=== PATIENT | female | born 1990 | race Caucasian/White ===

== ENCOUNTER 2021-02-15 10:34 | Outpatient (CLI) | payer OTHER, SELFPAY | END 2021-02-15 10:35 | disposition home or self-care (01) | LOC: ANHAUDIO 10:35 | PROVIDERS: PCP Family Medicine; Visit Provider Family Medicine | DX: Z01.10 Encounter for examination of ears and hearing without abnormal findings (principal) | CPT/HCPCS: 99199 ==

== ENCOUNTER 2021-03-05 10:33 | Outpatient (CLI) | payer OTHER, SELFPAY | END 2021-03-05 10:34 | disposition home or self-care (01) | LOC: ANHAUDIO 10:35 | PROVIDERS: PCP Family Medicine; Visit Provider Family Medicine | DX: F52.9 Unspecified sexual dysfunction not due to a substance or known physiological condition (principal); F22 Delusional disorders; G47.00 Insomnia, unspecified | CPT/HCPCS: 99199 ==

== ENCOUNTER 2021-03-22 10:59 | Outpatient (CLI) | payer OTHER, SELFPAY | END 2021-03-22 11:00 | disposition home or self-care (01) | LOC: ANHAUDIO 11:00 | PROVIDERS: PCP Family Medicine; Visit Provider Family Medicine | DX: Z01.10 Encounter for examination of ears and hearing without abnormal findings (principal) | CPT/HCPCS: 92556; 92567; 92587 ==

== ENCOUNTER 2022-03-29 08:36 | Outpatient (CLI) | payer OTHER, SELFPAY | END 2022-03-29 08:37 | disposition home or self-care (01) | LOC: ANHAUDIO 08:37 | PROVIDERS: PCP Family Medicine; Visit Provider Family Medicine | DX: G47.00 Insomnia, unspecified (principal) | CPT/HCPCS: 92552; 92556; 92567 ==

== ENCOUNTER 2023-04-24 11:02 | Outpatient (CLI) | payer OTHER, SELFPAY | END 2023-04-24 11:03 | disposition home or self-care (01) | LOC: ANHAUDIO 11:02 | PROVIDERS: PCP Family Medicine; Visit Provider Family Medicine | DX: Z01.10 Encounter for examination of ears and hearing without abnormal findings (principal) | CPT/HCPCS: 92552; 92556; 92567 ==

== ENCOUNTER 2024-04-30 07:43 | Outpatient (CLI) | payer OTHER, SELFPAY | END 2024-04-30 07:44 | disposition home or self-care (01) | LOC: ANHAUDIO 07:43 | PROVIDERS: PCP Family Medicine; Visit Provider Family Medicine | DX: Z01.10 Encounter for examination of ears and hearing without abnormal findings (principal) | CPT/HCPCS: 92552; 92556; 92567 ==

== ENCOUNTER 2025-05-03 10:37 | Outpatient (CLI) | payer OTHER, SELFPAY ==
--- OUTSIDE RECORDS SUMMARY | 2025-05-03 12:07 | XMS_ITS ---
Author Organization Unknown Address [address] [place] [phone] Phone Care Team Providers Care Shirt Closer Name Role Phone WILL Carlton Attending Unavailable SHANTAL Barnett Primary Unavailable Immunization Immunization Date Status Additional Notes Code Code System DTP 01/19/1992 Completed 01 CVX DTP 04/18/1993 Completed 01 CVX DTP 11/14/1993 Completed 01 CVX OPV, trivalent 01/19/1992 Completed 02 CVX OPV, trivalent 04/18/1993 Completed 02 CVX OPV, trivalent 11/14/1993 Completed 02 CVX OPV, trivalent 01/21/1996 Completed 02 CVX MMR 04/18/1993 Completed 03 CVX MMR 01/21/1996 Completed 03 CVX Hep B, adolescent or pediatric 01/14/2001 Completed 08 CVX IPV 01/11/1992 Completed 10 CVX Hib, unspecified formulation 02/16/1992 Completed 17 CVX Hib, unspecified formulation 04/18/1993 Completed 17 CVX Hib, unspecified formulation 11/14/1993 Completed 17 CVX DTaP 01/11/1992 Completed 20 CVX DTaP 01/21/1996 Completed 20 CVX DTP-Hib 08/26/1994 Completed 22 CVX meningococcal MPSV4 12/31/2005 Completed 32 CVX Hib (HbOC) 01/11/1992 Completed 47 CVX HPV, quadrivalent 02/02/2008 Completed 62 C VX HPV, quadrivalent 06/05/2010 Completed 62 C VX Influenza, live, trivalent, intranasal, PF 06/05/2010 Completed 111 CVX Tdap 12/31/2005 Completed 115 CVX Tdap 02/20/2021 Completed 115 CVX HPV, unspecified formulation 08/06/2011 Completed 137 CVX Influenza, split virus, trivalent, preservative 02/18/2024 Completed 141 CVX Influenza, split virus, quadrivalent, preservative 02/21/2021 Completed 158 C VX Influenza, split virus, quadrivalent, preservative 02/13/2022 Completed 158 C VX Influenza, split virus, quadrivalent, preservative 02/12/2023 Completed 158 C VX COVID-19, mRNA, LNP-S, PF, 3 0 mcg/0.3 mL dose 01/05/2021 Completed 208 CVX COVID-19, mRNA, LNP-S, PF, 3 0 mcg/0.3 mL dose 02/01/2021 Completed 208 CVX COVID-19, mRNA, LNP-S, PF, 3 0 mcg/0.3 mL dose 07/24/2021 Completed 208 CVX COVID-19, mRNA, LNP-S, bivalent, PF, 30 mcg/0.3 mL dose 09/11/2022 Completed 300 CVX COVID-19, mRNA, LNP-S, PF, 5 0 mcg/0.5 mL 02/24/2024 Completed 312 CVX Results ANKLE 2V LEFT - Completed: 0 01/05/2024 17:05 LOINC: EXAM DESCRIPTION: ANKLE 2V LEFT REASON FOR STUDY: fall/ ankle pain / swelling lateral aspect Duration: today TECHNIQUE: 2 radiographic view(s) of the left ankle . COMPARISON: None available FINDINGS: There is no acute fracture or acute traumatic malalignment. Joint spaces are normal. No focal bone lesions. Small plantar calcaneal spur. No ankle effusion. There is mild imaged lower extremity soft tissue swelling. IMPRESSION: No acute osseous abnormality. THIS IS AN ELECTRONICALLY VERIFIED FINAL REPORT 01/05/2024 5:15 PM - Electronically signed by Anahi De La Fuente M.D. AT: AT Report ID: [id number] Reading Location: [id number] Social History Type Status Start Date End Date Code Code Syst em Smoking History Unknown if ever smoked [id number] Sex Female Assessment You had the following problems:OTHER ALF (CURRENT) DRUG THERAPY Hospital Discharge Instructions Should you have any questions prior to discharge, please contact a member of your healthcare team. If you have left the hospital and have any questions, please contact your primary care physician. Reason For Referral No Data Found Problems Problem Start Date Resolved Date Status Code Code System OTHER ALF (CURRENT) DR [facility] active [id number] SNOMED-CT Plan of Treatment US Kidney & Bladder (66295) 12/06/2024 Encounters Encounter Diagnosis Start Date Code Code Sys tem Strain of other specified mu scles and tendons at ankle and foot level, left foot, initial encounter 01/05/2024 SNOMED-CT Personal Care Team Section Performer Name Performer Role Active Date Inactive LES Neil PCP - Primary care physician 2021-12-08 Imaging Narrative Notes
--- OUTSIDE RECORDS SUMMARY | 2025-05-03 12:07 | XMS_ITS ---
Author Organization Unknown Address [address] [place] [phone] Phone Care Team Providers Care Systematic Theology Professor Name Role Phone ISAÍAS REAGAN PMHNP Attending Unavailable SHANTAL Barnett Primary Unavailable Immunization [...] mcg/0.5 mL 02/24/2024 Completed 312 CVX Results COMPREHENSIVE METABOLIC PANE L - Collect Date/Time: 03/30/2024 07:55 [facility] ID: [id number] [address] [place], [place], [id number] LOINC: 26806-1 Test Value Unit Reference Range Code Code System Flag FASTING NO BUN 15 mg/dL L=7 H=20 3094-0 LOINC CREATININE 0.70 mg/dL L=0.52 H=1.04 2160-0 LOINC GLUCOSE 87 mg/dL L=74 H=106 2345-7 LOINC SODIUM 141 mmol/L L=132 H=144 2951-2 LOINC POTASSIUM 3.6 mmol/L L=3.5 H=5.1 2823-3 LOINC CHLORIDE 96 mmol/L L=98 H=107 2075-0 LOINC L CO2 31.0 mmol/L L=22.0 H=30.0 2028-9 LOINC H ANION GAP 18 L=10 H=20 60992-6 LOINC OSMOLALITY 292 mOs/kG L=280 H=296 12391-8 LOINC BUN/CREAT 21.4 3097-3 LOINC CALCIUM 9.2 mg/dL L=8.3 H=10.5 56643-8 LOINC AST 22 U/L L=15 H=46 1920-8 LOINC ALT 16 U/L L=9 H=72 1742-6 LOINC ALKALINE PHOS 70 U/L L=38 H=126 6768-6 LOINC TOTAL BILI 0.5 mg/dL L=0.2 H=1.3 1975-2 LOINC ALBUMIN 4.1 G/dL L=3.5 H=5.0 1751-7 LOINC TOTAL PROTEIN 7.6 g/L L=6.3 H=8.2 2885-2 LOINC A/G RATIO 1.2 70751-9 LOINC AGE 33 35105-6 LOINC eGFR NON-AFR 103 ml/min eGFR AFR AMER 125 ml/min VALPROIC ACID - Collect Date /Time: 03/30/2024 07:55 [facility] ID: [id number] [place], [id number] LOINC: 4086-5 Test Value Unit Reference Range Code Code System Flag VALPROIC ACID 52 ug/mL L=50 H=100 4086-5 LOINC LAST DOSE? UNKNOWN CBC W/ DIFF - Collect Date/T piper: 03/30/2024 07:55 [facility] ID: [id number] [place], [place], [phone] LOINC: 34070-6 Test Value Unit Reference Range Code Code System Flag WBC 5.6 10^3uL L=4.8 H=10.8 RBC 4.97 10^6uL L=4.20 H=5.40 HEMOGLOBIN 13.9 g/dL L=12.0 H=16.0 718-7 LOINC HEMATOCRIT 43.2 VOL% L=37.0 H=47.0 4544-3 LOINC MCV 86.9 fL L=81.0 H=99.0 MCH 28.0 pg L=27.0 H=32.0 MCHC 32.2 g/dL L=32.0 H=36.0 PLATELETS 177 10^3uL L=100 H=400 40913-8 LOINC RDW 12.7 % L=11.7 H=15.5 %GRAN 54.8 % L=40.0 H=70.0 07995-1 LOINC %LYMPH 36.6 % L=20.0 H=45.0 736-9 LOINC %MONO 5.9 % L=2.0 H=10.0 16500-4 LOINC %EOS 1.6 % L=0.0 H=6.0 713-8 LOINC %BASO 0.9 % L=0.0 H=3.0 706-2 LOINC #NEUT 3.1 10^3uL L=1.9 H=7.6 21784-3 LOINC #LYMPH 2.0 10^3uL L=0.9 H=4.9 42272-2 LOINC #MONO 0.3 10^3uL L=0.1 H=0.9 18030-9 LOINC #EOS 0.1 10^3uL L=0.0 H=0.6 712-0 LOINC #BASO 0.05 10^3uL L=0.00 H=0.10 74500-6 LOINC #IM GRANS 0.0 10^3uL L=0.0 H=7.0 23699-3 LOINC %IM GRANS 0.2 % L=0.0 H=5.0 68297-1 LOINC %NRB 0.0 L=0.0 H=0.2 10813-9 LOINC #NRB 0.000 L=0.000 H=0.012 92117-1 LOINC MANUAL DIFF NOT INDICATED RBC MORPH NOT INDICATED Social History Type Status Start Date End Date Code Code Syst em Smoking History Unknown if ever smoked [id number] Sex Female Assessment You had the following problems: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 If you have left the hospital and have any questions, please contact your primary care physician. 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
--- OUTSIDE RECORDS SUMMARY | 2025-05-03 12:08 | XMS_ITS ---
Author Organization Unknown Address [address] [place] [address] [phone] Phone Care Team Providers Care Bench Loom Weaver Name Role Phone ISAÍAS REAGAN PMHNP Attending [...] mcg/0.5 mL 02/24/2024 Completed 312 CVX Results CBC W/ DIFF - Collect Date/T piper: 07/15/2023 12:38 [facility] ID: [id number] [address] [place], [place], [phone] LOINC: 10026-4 Test Value Unit Reference Range Code Code System Flag WBC 6.0 10^3uL L=4.8 H=10.8 RBC 4.53 10^6uL L=4.20 H=5.40 HEMOGLOBIN 12.8 g/dL L=12.0 H=16.0 718-7 LOINC HEMATOCRIT 38.4 VOL% L=37.0 H=47.0 4544-3 LOINC MCV 84.8 fL L=81.0 H=99.0 MCH 28.3 pg L=27.0 H=32.0 MCHC 33.3 g/dL L=32.0 H=36.0 PLATELETS 151 10^3uL L=100 H=400 86293-4 LOINC RDW 12.4 % L=11.7 H=15.5 %GRAN 58.7 % L=40.0 H=70.0 87972-7 LOINC %LYMPH 34.6 % L=20.0 H=45.0 736-9 LOINC %MONO 4.5 % L=2.0 H=10.0 92540-7 LOINC %EOS 1.3 % L=0.0 H=6.0 713-8 LOINC %BASO 0.7 % L=0.0 H=3.0 706-2 LOINC #NEUT 3.5 10^3uL L=1.9 H=7.6 48004-9 LOINC #LYMPH 2.1 10^3uL L=0.9 H=4.9 37901-0 LOINC #MONO 0.3 10^3uL L=0.1 H=0.9 49794-3 LOINC #EOS 0.1 10^3uL L=0.0 H=0.6 712-0 LOINC #BASO 0.04 10^3uL L=0.00 H=0.10 01872-3 LOINC #IM GRANS 0.0 10^3uL L=0.0 H=7.0 92958-8 LOINC %IM GRANS 0.2 % L=0.0 H=5.0 47598-8 LOINC %NRB 0.0 L=0.0 H=0.2 40328-5 LOINC #NRB 0.000 L=0.000 H=0.012 61481-4 LOINC MANUAL DIFF NOT INDICATED RBC MORPH NOT INDICATED COMPREHENSIVE METABOLIC PANE L - Collect Date/Time: 07/15/2023 12:38 [facility] ID: [id number] [address] [place], [place], [id number] LOINC: 79048-9 Test Value Unit Reference Range Code Code System Flag FASTING NO BUN 16 mg/dL L=7 H=20 3094-0 LOINC CREATININE 0.70 mg/dL L=0.52 H=1.04 2160-0 LOINC GLUCOSE 107 mg/dL L=74 H=106 2345-7 LOINC H SODIUM 139 mmol/L L=132 H=144 2951-2 LOINC POTASSIUM 3.9 mmol/L L=3.5 H=5.1 2823-3 LOINC CHLORIDE 106 mmol/L L=98 H=107 2075-0 LOINC CO2 25.0 mmol/L L=22.0 H=30.0 2027-9 LOINC ANION GAP 12 L=10 H=20 28503-4 LOINC OSMOLALITY 290 mOs/kG L=280 H=296 44113-1 LOINC BUN/CREAT 22.9 3097-3 LOINC CALCIUM 8.7 mg/dL L=8.3 H=10.5 89756-9 LOINC AST 23 U/L L=15 H=46 1920-8 LOINC ALT 15 U/L L=9 H=72 1742-6 LOINC ALKALINE PHOS 57 U/L L=38 H=126 6768-6 LOINC TOTAL BILI 0.3 mg/dL L=0.2 H=1.3 1975-2 LOINC ALBUMIN 3.9 G/dL L=3.5 H=5.0 1751-7 LOINC TOTAL PROTEIN 7.0 g/L L=6.3 H=8.2 2885-2 LOINC A/G RATIO 1.3 74343-4 LOINC AGE 32 86127-1 LOINC eGFR NON-AFR 104 ml/min eGFR AFR AMER 126 ml/min LIPID PANEL - Collect Date/T piper: 07/15/2023 12:38 [facility] ID: [id number] [place], [place], [id number] LOINC: 59575-8 Test Value Unit Reference Range Code Code System Flag FASTING NO CHOLESTEROL 175 mg/dL L=0 H=200 2092-3 LOINC TRIGLYCERIDE 159 mg/dL L=0 H=150 2570-8 LOINC H HDL 41 mg/dL L=40 H=60 2084-9 LOINC LDL 98 mg/dL 2088- LOINC TSH - Collect Date/Time: 11/2023 12:38 [facility] ID: [id number] [place], [place], [id number] LOINC: 91353-5 Test Value Unit Reference Range Code Code System Flag TSH. 1.430 uIU/L L=0.470 H=4.680 36398-5 LOINC VALPROIC ACID - Collect Date /Time: 07/15/2023 12:38 [facility] ID: [id number] [address] [place] [address], [id number] LOINC: 4086-5 Test Value Unit Reference Range Code Code System Flag VALPROIC ACID 43 ug/mL L=50 H=100 4086-5 LOINC L LAST DOSE? UNK HEPATITIS C AB (HCV Ab) - Co llect Date/Time: 07/15/2023 12:38 [facility] ID: [id number] [address] [place] [address], [id number] LOINC: 90904-4 Test Value Unit Reference Range Code Code System Flag Hep C Virus Ab Non Reactive Non Reactive 33383-0 LOINC SEND TO IFC? NO HIV 4th GEN Ab 1&2 p24 Ag in -house - Collect Date/Time: 07/15/2023 12:38 [facility] ID: [id number] [address] [place] [address], [phone] LOINC: 55782-3 Test Value Unit Reference Range Code Code System Flag HIV-1 Ab NEGATIVE NORMAL: NON REACTIVE/NE HIV-2 Ab NEGATIVE HIV-p24 Ag NEGATIVE SEND TO IFC? NO REFLEX? 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 If you have left the hospital and have any questions, please contact your primary care physician. 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
--- OUTSIDE RECORDS SUMMARY | 2025-05-03 12:08 | XMS_ITS ---
Author Organization Unknown Address [address] [place] [phone] Phone Care Team Providers Care Information Technology Security Analyst Name Role Phone ISAÍAS REAGAN PMHNP Attending [...] mcg/0.5 mL 02/24/2024 Completed 312 CVX Results VALPROIC ACID - Collect Date /Time: 09/23/2023 06:38 [facility] ID: [id number] [address] [place], [place], [id number] LOINC: 4086-5 Test Value Unit Reference Range Code Code System Flag VALPROIC ACID 37 ug/mL L=50 H=100 4086-5 LOINC L LAST DOSE? 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 If you have left the hospital and have any questions, please contact your primary care physician. 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
--- OUTSIDE RECORDS SUMMARY | 2025-05-03 12:08 | XMS_ITS ---
Author Organization Unknown Address [address] [place] [phone] Phone Care Team Providers Care Hunting And Fishing Guide Name Role Phone ESMER CAMPA Attending Unavailable SHANTAL Barnett Primary Unavailable Immunization [...] mcg/0.5 mL 02/24/2024 Completed 312 CVX Results US KIDNEY AND BLADDER - Comp leted: 12/06/2024 08:33 LOINC: \TM00\\12PI\\DRAo\\BM09\ \[place]Ho\ [place] [address] ---------NAME--------- NUMBER SEX AGE ADMIT DISC. XRAY# F/C TYPE MANUS MILADYS N [id number] F 34 12/06/24 12/06/24 67043 XB7 O/P DATE OF : 1990 M/R# [id number] PH#: [phone] \MRx\ LOCATION: TRANSCRIBED: 12/06/24 9:09 [facility] [id number] COMPLETED:12/06/24 8:33 [facility] [id number] {REASON-US KID/BLADDR INCONTINENCE PHYSICIAN: ESMER L R A D I O L O G Y R E P O R T INDICATION: REASON-US KID/BLADDR INCONTINENCE TECHNIQUE: Multiple real-time sonographic images of the kidneys and bladder were obtained. COMPARISON: None FINDINGS: The right kidney measures 11.2 cm in length, which is normal in size. There is normal echogenicity of the right kidney. No hydronephrosis. The left kidney measures 11.0 cm in length, which is normal in size. There is normal echogenicity of the left kidney. No hydronephrosis. No large intraluminal masses are seen in the bladder. Prior to voiding the bladder volume measures volume 30.0 cc. Postvoid residual not evaluated. IMPRESSION: 1. Normal sonographic appearance of the kidneys. No hydronephrosis. 2. Unremarkable sonographic appearance of the urinary bladder. DROPPER \ITLo\ \UNDo\ \UNDx\ \ITLx\ Reviewed and Electronically Signed by: Magda Robbins MD Signed Date: 12/06/24 09:09 Social History Type Status Start Date End Date Code Code Syst em Smoking History Unknown if ever smoked [id number] Sex Female Assessment You had the following problems:OTHER [facility] (CURRENT) DRUG THERAPY Hospital Discharge Instructions Should you have any questions prior to discharge, please contact a member of your healthcare team. If you have left the hospital and have any questions, please contact your primary care physician. 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 XRAY# F/C TYPE MANUS MILADYS N [id number] F 34 12/06/24 12/06/24 47398 XB7 O/P DATE OF : 1990 M/R# [id number] #: [phone] LOCATION: TRANSCRIBED: 12/06/24 9:09 [facility] [address]75 COMPLETED:12/06/24 8:33 [facility] [address] {REASON-US KID/BLADDR INCONTINENCE PHYSICIAN: ESMER Barnett RADIOLOGY REPORT INDICATION: REASON-US KID/BLADDR INCONTINENCE TECHNIQUE: Multiple real-time sonographic images of the kidneys and bladder were obtained. COMPARISON: None FINDINGS: The right kidney measures 11.2 cm in length, which is normal in size. There is normal echogenicity of the right kidney. No hydronephrosis. The left kidney measures 11.0 cm in length, which is normal in size. There is normal echogenicity of the left kidney. No hydronephrosis. No large intraluminal masses are seen in the bladder. Prior to voiding the bladder volume measures volume 30.0 cc. Postvoid residual not evaluated. IMPRESSION: 1. Normal sonographic appearance of the kidneys. No hydronephrosis. 2. Unremarkable sonographic appearance of the urinary bladder. DROPPER Reviewed and Electronically Signed by: Magda Robbins MD Signed Date: 12/06/24 09:09
--- OUTSIDE RECORDS SUMMARY | 2025-05-03 12:08 | XMS_ITS ---
Author Organization Unknown Address [address] [place] [phone] Phone Care Team Providers Care Assisted Living Nursing Director Name Role Phone ISAÍAS REAGAN PMHNP Attending [...] COMPREHENSIVE METABOLIC PANE L - Collect Date/Time: 04/01/2023 07:15 [facility] ID: [id number] [address] [place], [place], [id number] LOINC: 14851-6 Test Value Unit Reference Range Code Code System Flag FASTING NO BUN 15 mg/dL L=7 H=20 3094-0 LOINC CREATININE 0.80 mg/dL L=0.52 H=1.04 2160-0 LOINC GLUCOSE 80 mg/dL L=74 H=106 2345-7 LOINC SODIUM 140 mmol/L L=132 H=144 2951-2 LOINC POTASSIUM 3.7 mmol/L L=3.5 H=5.1 2823-3 LOINC CHLORIDE 100 mmol/L L=98 H=107 2075-0 LOINC CO2 32.0 mmol/L L=22.0 H=30.0 2028-9 LOINC H ANION GAP 12 L=10 H=20 53892-5 LOINC OSMOLALITY 290 mOs/kG L=280 H=296 72535-1 LOINC BUN/CREAT 18.8 3097-3 LOINC CALCIUM 9.2 mg/dL L=8.3 H=10.5 12183-3 LOINC AST 20 U/L L=15 H=46 1920-8 LOINC ALT 17 U/L L=9 H=72 1742-6 LOINC ALKALINE PHOS 58 U/L L=38 H=126 6768-6 LOINC TOTAL BILI 0.5 mg/dL L=0.2 H=1.3 1975-2 LOINC ALBUMIN 4.2 G/dL L=3.5 H=5.0 1751-7 LOINC TOTAL PROTEIN 7.6 g/L L=6.3 H=8.2 2885-2 LOINC A/G RATIO 1.2 97941-3 LOINC AGE 32 98254-1 LOINC eGFR NON-AFR 89 ml/min eGFR AFR AMER 108 ml/min VALPROIC ACID - Collect Date /Time: 04/01/2023 07:15 [facility] ID: [id number] [address] [place] [address], [phone] LOINC: 4086-5 Test Value Unit Reference Range Code Code System Flag VALPROIC ACID 63 ug/mL L=50 H=100 4086-5 LOINC LAST DOSE? UNKNOWN CBC W/ DIFF - Collect Date/T piper: 04/01/2023 07:15 [facility] ID: [id number] [address] [place] [address], [id number] LOINC: 19821-7 Test Value Unit Reference Range Code Code System Flag WBC 5.3 10^3uL L=4.8 H=10.8 RBC 4.81 10^6uL L=4.20 H=5.40 HEMOGLOBIN 13.3 g/dL L=12.0 H=16.0 718-7 LOINC HEMATOCRIT 41.2 VOL% L=37.0 H=47.0 4544-3 LOINC MCV 85.7 fL L=81.0 H=99.0 MCH 27.7 pg L=27.0 H=32.0 MCHC 32.3 g/dL L=32.0 H=36.0 PLATELETS 86 10^3uL L=100 H=400 83915-1 LOINC L RDW 12.3 % L=11.7 H=15.5 %GRAN 54.5 % L=40.0 H=70.0 16474-2 LOINC %LYMPH 39.0 % L=20.0 H=45.0 736-9 LOINC %MONO 4.5 % L=2.0 H=10.0 33732-3 LOINC %EOS 0.9 % L=0.0 H=6.0 713-8 LOINC %BASO 0.9 % L=0.0 H=3.0 706-2 LOINC #NEUT 2.9 10^3uL L=1.9 H=7.6 19134-2 LOINC #LYMPH 2.1 10^3uL L=0.9 H=4.9 64225-7 LOINC #MONO 0.2 10^3uL L=0.1 H=0.9 23674-6 LOINC #EOS 0.1 10^3uL L=0.0 H=0.6 712-0 LOINC #BASO 0.05 10^3uL L=0.00 H=0.10 91771-0 LOINC #IM GRANS 0.0 10^3uL L=0.0 H=7.0 53559-6 LOINC %IM GRANS 0.2 % L=0.0 H=5.0 76670-8 LOINC %NRB 0.0 L=0.0 H=0.2 82894-6 LOINC #NRB 0.000 L=0.000 H=0.012 52915-7 LOINC MANUAL DIFF NOT INDICATED RBC MORPH NOT INDICATED Social History Type Status Start Date End Date Code Code Syst em Smoking History Unknown if ever smoked [address] Sex Female Assessment You had the following problems:OTHER CORRECTION (CURRENT) DRUG THERAPY Hospital Discharge Instructions Should you have any questions prior to discharge, please contact a member of your healthcare team. If you have left the hospital and have any questions, please contact your primary care physician. 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
--- OUTSIDE RECORDS SUMMARY | 2025-05-03 12:08 | XMS_ITS ---
Author Organization Unknown Address [address] [place] [phone] Phone Care Team Providers Care C4 Planner Name Role Phone ISAÍAS REAGAN PMHNP Attending [...] COMPREHENSIVE METABOLIC PANE L - Collect Date/Time: 03/18/2025 06:30 [facility] ID: [id number] [address] [place], [place], [phone] LOINC: 88286-4 Test Value Unit Reference Range Code Code System Flag FASTING YES BUN 10 mg/dL L=7 H=20 3094-0 LOINC CREATININE 1.00 mg/dL L=0.52 H=1.04 2160-0 LOINC AGE 34 67134-3 LOINC eGFR 76 GLUCOSE 78 mg/dL L=74 H=106 2345-7 LOINC SODIUM 140 mmol/L L=132 H=144 2951-2 LOINC POTASSIUM 4.2 mmol/L L=3.5 H=5.1 2823-3 LOINC CHLORIDE 103 mmol/L L=98 H=107 2075-0 LOINC CO2 31.0 mmol/L L=22.0 H=30.0 2028-9 LOINC H ANION GAP 10 L=10 H=20 99677-9 LOINC OSMOLALITY 288 mOs/kG L=280 H=296 46469-4 LOINC BUN/CREAT 10.0 3097-3 LOINC CALCIUM 8.7 mg/dL L=8.3 H=10.5 69820-4 LOINC AST 20 U/L L=15 H=46 1920-8 LOINC ALT 14 U/L L=9 H=72 1742-6 LOINC ALKALINE PHOS 72 U/L L=38 H=126 6768-6 LOINC TOTAL BILI 0.4 mg/dL L=0.2 H=1.3 1975-2 LOINC ALBUMIN 3.7 G/dL L=3.5 H=5.0 1751-7 LOINC TOTAL PROTEIN 6.6 g/L L=6.3 H=8.2 2885-2 LOINC A/G RATIO 1.3 15916-8 LOINC VALPROIC ACID - Collect Date /Time: 03/18/2025 06:30 [facility] ID: [id number] [address] [place] [address], [phone] LOINC: 4086-5 Test Value Unit Reference Range Code Code System Flag VALPROIC ACID 34 ug/mL L=50 H=100 4086-5 LOINC L LAST DOSE? UNKNOWN CBC W/ DIFF - Collect Date/T piper: 03/18/2025 06:30 [facility] ID: [id number] [address] [place] [address], [id number] LOINC: 59001-8 Test Value Unit Reference Range Code Code System Flag WBC 5.2 10^3uL L=4.0 H=10.5 RBC 4.94 10^6uL L=4.20 H=5.40 HEMOGLOBIN 13.5 g/dL L=12.0 H=16.0 718-7 LOINC HEMATOCRIT 41.9 VOL% L=37.0 H=47.0 4544-3 LOINC MCV 84.8 fL L=81.0 H=99.0 MCH 27.3 pg L=27.0 H=32.0 MCHC 32.2 g/dL L=32.0 H=36.0 PLATELETS 224 10^3uL L=100 H=400 41792-5 LOINC RDW 13.0 % L=11.7 H=15.5 %GRAN 54.7 % L=40.0 H=70.0 69986-0 LOINC %LYMPH 36.2 % L=20.0 H=45.0 736-9 LOINC %MONO 6.2 % L=2.0 H=10.0 70919-8 LOINC %EOS 1.9 % L=0.0 H=6.0 713-8 LOINC %BASO 1.0 % L=0.0 H=3.0 706-2 LOINC #NEUT 2.9 10^3uL L=1.9 H=7.6 05638-4 LOINC #LYMPH 1.9 10^3uL L=0.9 H=4.9 65341-5 LOINC #MONO 0.3 10^3uL L=0.1 H=0.9 59366-3 LOINC #EOS 0.1 10^3uL L=0.0 H=0.6 712-0 LOINC #BASO 0.05 10^3uL L=0.00 H=0.10 78962-3 LOINC #IM GRANS 0.0 10^3uL L=0.0 H=7.0 08470-8 LOINC %IM GRANS 0.0 % L=0.0 H=5.0 83701-9 LOINC %NRB 0.0 L=0.0 H=0.2 87298-4 LOINC #NRB 0.000 L=0.000 H=0.012 67398-0 LOINC MANUAL DIFF NOT INDICATED RBC MORPH NOT INDICATED Social History Type Status Start Date End Date Code Code Syst em Smoking History Unknown if ever smoked [id number] Sex Female Assessment You had the following problems:OTHER SKILLED NURSING (CURRENT) DRUG THERAPY Hospital Discharge Instructions Should you have any questions prior to discharge, please contact a member of your healthcare team. If you have left the hospital and have any questions, please contact your primary care physician. Reason For Referral No Data Found Problems Problem Start Date Resolved Date Status Code Code System OTHER SKILLED NURSING (CURRENT) [facility] active [id number] SNOMED-CT Plan of Treatment US Kidney & Bladder (29483) 12/06/2024 Encounters Encounter Diagnosis Start Date Code Code Sys tem Other residential (current) drug therapy 03/18/2025 SNOMED-CT Personal Care Team Section Performer Name Performer Role Active Date Inactive LES Neil PCP - Primary care physician 2021-12-08
--- OUTSIDE RECORDS SUMMARY | 2025-05-03 12:09 | XMS_ITS ---
Author Organization Unknown Address [address] [place] [phone] Phone Care Team Providers Care Kelp Gatherer Name Role Phone ISAÍAS REAGAN PMHNP Attending [...] COMPREHENSIVE METABOLIC PANE L - Collect Date/Time: 11/09/2024 07:15 [facility] ID: [id number] [address] [place], [place], [id number] LOINC: 14050-6 Test Value Unit Reference Range Code Code System Flag FASTING YES BUN 11 mg/dL L=7 H=20 3094-0 LOINC CREATININE 0.80 mg/dL L=0.52 H=1.04 2160-0 LOINC GLUCOSE 95 mg/dL L=74 H=106 2345-7 LOINC SODIUM 139 mmol/L L=132 H=144 2951-2 LOINC POTASSIUM 3.8 mmol/L L=3.5 H=5.1 2823-3 LOINC CHLORIDE 102 mmol/L L=98 H=107 2075-0 LOINC CO2 30.0 mmol/L L=22.0 H=30.0 2028-9 LOINC ANION GAP 11 L=10 H=20 88310-7 LOINC OSMOLALITY 287 mOs/kG L=280 H=296 55142-9 LOINC BUN/CREAT 13.8 3097-3 LOINC CALCIUM 8.9 mg/dL L=8.3 H=10.5 47072-2 LOINC AST 20 U/L L=15 H=46 1920-8 LOINC ALT 13 U/L L=9 H=72 1742-6 LOINC ALKALINE PHOS 66 U/L L=38 H=126 6768-6 LOINC TOTAL BILI 0.4 mg/dL L=0.2 H=1.3 1975-2 LOINC ALBUMIN 3.9 G/dL L=3.5 H=5.0 1751-7 LOINC TOTAL PROTEIN 7.1 g/L L=6.3 H=8.2 2885-2 LOINC A/G RATIO 1.2 06784-8 LOINC AGE 34 37974-3 LOINC eGFR NON-AFR 88 ml/min eGFR AFR AMER 106 ml/min VALPROIC ACID - Collect Date /Time: 11/09/2024 07:15 [facility] ID: [id number] [address] [place] [address], [phone] LOINC: 4086-5 Test Value Unit Reference Range Code Code System Flag VALPROIC ACID 44 ug/mL L=50 H=100 4086-5 LOINC L LAST DOSE? UNKNOWN CBC W/ DIFF - Collect Date/T piper: 11/09/2024 07:15 [facility] ID: [id number] [address] [place] [address], [phone] LOINC: 22939-6 Test Value Unit Reference Range Code Code System Flag WBC 5.6 10^3uL L=4.8 H=10.8 RBC 5.07 10^6uL L=4.20 H=5.40 HEMOGLOBIN 13.5 g/dL L=12.0 H=16.0 718-7 LOINC HEMATOCRIT 42.9 VOL% L=37.0 H=47.0 4544-3 LOINC MCV 84.6 fL L=81.0 H=99.0 MCH 26.6 pg L=27.0 H=32.0 L MCHC 31.5 g/dL L=32.0 H=36.0 L PLATELETS 214 10^3uL L=100 H=400 34714-1 LOINC RDW 13.0 % L=11.7 H=15.5 %GRAN 58.6 % L=40.0 H=70.0 48422-8 LOINC %LYMPH 35.3 % L=20.0 H=45.0 736-9 LOINC %MONO 4.3 % L=2.0 H=10.0 69805-2 LOINC %EOS 1.1 % L=0.0 H=6.0 713-8 LOINC %BASO 0.7 % L=0.0 H=3.0 706-2 LOINC #NEUT 3.3 10^3uL L=1.9 H=7.6 75441-0 LOINC #LYMPH 2.0 10^3uL L=0.9 H=4.9 27115-3 LOINC #MONO 0.2 10^3uL L=0.1 H=0.9 84225-4 LOINC #EOS 0.1 10^3uL L=0.0 H=0.6 712-0 LOINC #BASO 0.04 10^3uL L=0.00 H=0.10 61358-9 LOINC #IM GRANS 0.0 10^3uL L=0.0 H=7.0 66121-3 LOINC %IM GRANS 0.0 % L=0.0 H=5.0 22891-4 LOINC %NRB 0.0 L=0.0 H=0.2 21926-8 LOINC #NRB 0.000 L=0.000 H=0.012 29964-2 LOINC MANUAL DIFF NOT INDICATED RBC MORPH NOT INDICATED Social History Type Status Start Date End Date Code Code Syst em Smoking History Unknown if ever smoked [id number] Sex Female Assessment You had the following problems: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 If you have left the hospital and have any questions, please contact your primary care physician. Reason For Referral No Data Found Problems Problem Start Date Resolved Date Status Code Code System OTHER RESIDENTIAL (CURRENT) [facility] active [id number] SNOMED-CT Plan of Treatment US Kidney & Bladder (25053) 12/06/2024 Encounters Encounter Diagnosis Start Date Code Code Sys tem Other intermediate frame tender (current) drug therapy 11/09/2024 SNOMED-CT Personal Care Team Section Performer Name Performer Role Active Date Inactive LES Neil PCP - Primary care physician 2021-12-08
--- OUTSIDE RECORDS SUMMARY | 2025-05-03 12:09 | XMS_ITS ---
Author Organization Unknown Address [address] [place] [phone] Phone Care Team Providers Care Piece Work Checker Name Role Phone SHANTAL SALDANA Anibal Attending Unavailable Immunization Immunization Date Status Additional Notes [...] mcg/0.5 mL 02/24/2024 Completed 312 CVX Results TSH - Collect Date/Time: 07:05 [facility] ID: [id number] [address] [place] [address], [phone] LOINC: 45960-3 Test Value Unit Reference Range Code Code System Flag TSH. 3.490 uIU/L L=0.470 H=4.680 32434-9 LOINC T4 FREE - Collect Date/Time: 11/04/2023 07:05 [facility] ID: [id number] [address] [place] [address], [phone] LOINC: 3024-7 Test Value Unit Reference Range Code Code System Flag T4, FREE 1.19 ng/dL L=0.78 H=2.19 3024-7 LOINC FREE T3 - Collect Date/Time: 11/04/2023 07:05 [facility] ID: [id number] [address] [place], [place], [phone] LOINC: 3051-0 Test Value Unit Reference Range Code Code System Flag FREE T3 3.90 pg/mL L=2.77 H=5.27 3051-0 LOINC Social History Type Status Start Date End Date Code Code Syst em Smoking History Unknown if ever smoked [address] Sex Female Assessment You had the following problems:OTHER HALF-WAY (CURRENT) DRUG THERAPY Hospital Discharge Instructions Should you have any questions prior to discharge, please contact a member of your healthcare team. If you have left the hospital and have any questions, please contact your primary care physician. 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
--- OUTSIDE RECORDS SUMMARY | 2025-05-03 12:09 | XMS_ITS ---
Author Organization Unknown Address [address] [place] [phone] Phone Care Team Providers Care Oracle Developer Name Role Phone ISAÍAS REAGAN PMHNP Attending [...] COMPREHENSIVE METABOLIC PANE L - Collect Date/Time: 11/25/2023 06:45 [facility] ID: [id number] [address] [place], [place], [phone] LOINC: 00900-4 Test Value Unit Reference Range Code Code System Flag FASTING NO BUN 12 mg/dL L=7 H=20 3094-0 LOINC CREATININE 0.70 mg/dL L=0.52 H=1.04 2160-0 LOINC GLUCOSE 86 mg/dL L=74 H=106 2345-7 LOINC SODIUM 140 mmol/L L=132 H=144 2951-2 LOINC POTASSIUM 3.7 mmol/L L=3.5 H=5.1 2823-3 LOINC CHLORIDE 104 mmol/L L=98 H=107 2075-0 LOINC CO2 32.0 mmol/L L=22.0 H=30.0 2028-9 LOINC H ANION GAP 8 L=10 H=20 14807-3 LOINC L OSMOLALITY 289 mOs/kG L=280 H=296 07568-2 LOINC BUN/CREAT 17.1 3097-3 LOINC CALCIUM 8.8 mg/dL L=8.3 H=10.5 69540-6 LOINC AST 20 U/L L=15 H=46 1920-8 LOINC ALT 15 U/L L=9 H=72 1742-6 LOINC ALKALINE PHOS 55 U/L L=38 H=126 6768-6 LOINC TOTAL BILI 0.6 mg/dL L=0.2 H=1.3 1975-2 LOINC ALBUMIN 3.9 G/dL L=3.5 H=5.0 1751-7 LOINC TOTAL PROTEIN 7.1 g/L L=6.3 H=8.2 2885-2 LOINC A/G RATIO 1.2 92297-2 LOINC AGE 33 46555-5 LOINC eGFR NON-AFR 103 ml/min eGFR AFR AMER 125 ml/min VALPROIC ACID - Collect Date /Time: 11/25/2023 06:45 [facility] ID: [id number] [address] [place] [address], [phone] LOINC: 4086-5 Test Value Unit Reference Range Code Code System Flag VALPROIC ACID 62 ug/mL L=50 H=100 4086-5 LOINC LAST DOSE? UNKNOWN CBC W/ DIFF - Collect Date/T piper: 11/25/2023 06:45 [facility] ID: [id number] [address] [place] [address], [phone] LOINC: 03419-1 Test Value Unit Reference Range Code Code System Flag WBC 5.0 10^3uL L=4.8 H=10.8 RBC 4.69 10^6uL L=4.20 H=5.40 HEMOGLOBIN 13.0 g/dL L=12.0 H=16.0 718-7 LOINC HEMATOCRIT 40.9 VOL% L=37.0 H=47.0 4544-3 LOINC MCV 87.2 fL L=81.0 H=99.0 MCH 27.7 pg L=27.0 H=32.0 MCHC 31.8 g/dL L=32.0 H=36.0 L PLATELETS 197 10^3uL L=100 H=400 00781-7 LOINC RDW 13.0 % L=11.7 H=15.5 %GRAN 50.6 % L=40.0 H=70.0 33390-5 LOINC %LYMPH 40.0 % L=20.0 H=45.0 736-9 LOINC %MONO 7.0 % L=2.0 H=10.0 66686-1 LOINC %EOS 1.6 % L=0.0 H=6.0 713-8 LOINC %BASO 0.8 % L=0.0 H=3.0 706-2 LOINC #NEUT 2.5 10^3uL L=1.9 H=7.6 64159-4 LOINC #LYMPH 2.0 10^3uL L=0.9 H=4.9 71980-5 LOINC #MONO 0.4 10^3uL L=0.1 H=0.9 01245-5 LOINC #EOS 0.1 10^3uL L=0.0 H=0.6 712-0 LOINC #BASO 0.04 10^3uL L=0.00 H=0.10 97784-8 LOINC #IM GRANS 0.0 10^3uL L=0.0 H=7.0 23604-0 LOINC %IM GRANS 0.0 % L=0.0 H=5.0 20886-1 LOINC %NRB 0.0 L=0.0 H=0.2 95782-0 LOINC #NRB 0.000 L=0.000 H=0.012 46849-3 LOINC MANUAL DIFF NOT INDICATED RBC MORPH NOT INDICATED Social History Type Status Start Date End Date Code Code Syst em Smoking History Unknown if ever smoked [id number] Sex Female Assessment You had the following problems: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 If you have left the hospital and have any questions, please contact your primary care physician. Reason For Referral No Data Found Problems Problem Start Date Resolved Date Status Code Code System OTHER RESIDENTIAL (CURRENT) DR [facility] active [id number] SNOMED-CT Plan of Treatment US Kidney & Bladder (12045) 12/06/2024 Encounters Encounter Diagnosis Start Date Code Code Sys tem Other penitentiary (current) drug therapy 11/25/2023 SNOMED-CT Personal Care Team Section Performer Name Performer Role Active Date Inactive LES Neil PCP - Primary care physician 2021-12-08
--- OUTSIDE RECORDS SUMMARY | 2025-05-03 12:09 | XMS_ITS ---
Author Organization Unknown Address [address] [place] [phone] Phone Care Team Providers Care Leather Cleaner Name Role Phone ISAÍAS REAGAN PMHNP Attending [...] COMPREHENSIVE METABOLIC PANE L - Collect Date/Time: 07/19/2024 07:45 [facility] ID: [id number] [address] [place], [place], [phone] LOINC: 02244-0 Test Value Unit Reference Range Code Code System Flag FASTING NO BUN 13 mg/dL L=7 H=20 3094-0 LOINC CREATININE 0.80 mg/dL L=0.52 H=1.04 2160-0 LOINC GLUCOSE 100 mg/dL L=74 H=106 2345-7 LOINC SODIUM 141 mmol/L L=132 H=144 2951-2 LOINC POTASSIUM 3.7 mmol/L L=3.5 H=5.1 2823-3 LOINC CHLORIDE 98 mmol/L L=98 H=107 2075-0 LOINC CO2 34.0 mmol/L L=22.0 H=30.0 2028-9 LOINC H ANION GAP 13 L=10 H=20 72155-2 LOINC OSMOLALITY 292 mOs/kG L=280 H=296 36728-1 LOINC BUN/CREAT 16.3 3097-3 LOINC CALCIUM 9.2 mg/dL L=8.3 H=10.5 33997-1 LOINC AST 20 U/L L=15 H=46 1920-8 LOINC ALT 16 U/L L=9 H=72 1742-6 LOINC ALKALINE PHOS 66 U/L L=38 H=126 6768-6 LOINC TOTAL BILI 0.2 mg/dL L=0.2 H=1.3 1975-2 LOINC ALBUMIN 4.1 G/dL L=3.5 H=5.0 1751-7 LOINC TOTAL PROTEIN 7.5 g/L L=6.3 H=8.2 2885-2 LOINC A/G RATIO 1.2 69037-5 LOINC AGE 33 84424-4 LOINC eGFR NON-AFR 88 ml/min eGFR AFR AMER 106 ml/min TSH - Collect Date/Time: 03/2025 07:45 [facility] ID: [id number] [address] [place] [address], [phone] LOINC: 28165-6 Test Value Unit Reference Range Code Code System Flag TSH. 1.450 uIU/L L=0.470 H=4.680 73676-2 LOINC LIPID PANEL - Collect Date/T piper: 07/19/2024 07:45 [facility] ID: [id number] [address] [place] [address], [phone] LOINC: 66589-1 Test Value Unit Reference Range Code Code System Flag FASTING NO CHOLESTEROL 200 mg/dL L=0 H=200 2092-3 LOINC TRIGLYCERIDE 146 mg/dL L=0 H=150 2570-8 LOINC HDL 57 mg/dL L=40 H=60 2084-9 LOINC LDL 105 mg/dL 2088-1 LOINC VALPROIC ACID - Collect Date /Time: 07/19/2024 07:45 [facility] ID: [id number] [id number] [place] [address], [phone] LOINC: 4086-5 Test Value Unit Reference Range Code Code System Flag VALPROIC ACID 59 ug/mL L=50 H=100 4086-5 LOINC LAST DOSE? UNKNOWN HGB A1C -GLYCOHEMOGLOBIN - C ollect Date/Time: 07/19/2024 07:45 [facility] ID: [id number] [address] [place] [address], [phone] LOINC: 4548-4 Test Value Unit Reference Range Code Code System Flag HGBA1C 5.2 % 4548-4 LOINC CBC W/ DIFF - Collect Date/T piper: 07/19/2024 07:45 [facility] ID: [id number] [address] [place] [address], [phone] LOINC: 55399-2 Test Value Unit Reference Range Code Code System Flag WBC 6.0 10^3uL L=4.8 H=10.8 RBC 5.01 10^6uL L=4.20 H=5.40 HEMOGLOBIN 13.6 g/dL L=12.0 H=16.0 718-7 LOINC HEMATOCRIT 43.3 VOL% L=37.0 H=47.0 4544-3 LOINC MCV 86.4 fL L=81.0 H=99.0 MCH 27.1 pg L=27.0 H=32.0 MCHC 31.4 g/dL L=32.0 H=36.0 L PLATELETS 168 10^3uL L=100 H=400 12854-2 LOINC RDW 12.6 % L=11.7 H=15.5 %GRAN 61.5 % L=40.0 H=70.0 11905-0 LOINC %LYMPH 31.3 % L=20.0 H=45.0 736-9 LOINC %MONO 4.3 % L=2.0 H=10.0 36865-9 LOINC %EOS 1.7 % L=0.0 H=6.0 713-8 LOINC %BASO 1.0 % L=0.0 H=3.0 706-2 LOINC #NEUT 3.7 10^3uL L=1.9 H=7.6 69795-1 LOINC #LYMPH 1.9 10^3uL L=0.9 H=4.9 68331-3 LOINC #MONO 0.3 10^3uL L=0.1 H=0.9 94298-6 LOINC #EOS 0.1 10^3uL L=0.0 H=0.6 712-0 LOINC #BASO 0.06 10^3uL L=0.00 H=0.10 29805-6 LOINC #IM GRANS 0.0 10^3uL L=0.0 H=7.0 54081-1 LOINC %IM GRANS 0.2 % L=0.0 H=5.0 05089-2 LOINC %NRB 0.0 L=0.0 H=0.2 44197-6 LOINC #NRB 0.000 L=0.000 H=0.012 01094-4 LOINC MANUAL DIFF NOT INDICATED RBC MORPH NOT INDICATED Social History Type Status Start Date End Date Code Code Syst em Smoking History Unknown if ever smoked [id number] Sex Female Assessment You had the following problems:OTHER [facility] (CURRENT) DRUG THERAPY Hospital Discharge Instructions Should you have any questions prior to discharge, please contact a member of your healthcare team. If you have left the hospital and have any questions, please contact your primary care physician. Reason For Referral No Data Found Problems Problem Start Date Resolved Date Status Code Code System OTHER [facility] (CURRENT) [facility] active [id number] SNOMED-CT Plan of Treatment US Kidney & Bladder (90837) 12/06/2024 Encounters Encounter Diagnosis Start Date Code Code Sys tem Other penitentiary (current) drug therapy 07/19/2024 SNOMED-CT Personal Care Team Section Performer Name Performer Role Active Date Inactive LES Neil PCP - Primary care physician 2021-12-08
== END 2025-05-03 10:38 | disposition home or self-care (01) ==
LOC: ANHAUDIO 10:38
PROVIDERS: PCP Family Medicine; Visit Provider Family Medicine
DX: Z01.10 Encounter for examination of ears and hearing without abnormal findings (principal)
CPT/HCPCS: 92557; 92567